=== PATIENT | male | born 1985 | race Caucasian/White ===

== ENCOUNTER 2016-07-04 14:55 | Emergency (ER) | payer BC ==
[~2016-07-04] VITALS: Ht 182.9 cm; Wt 75.2 kg
[~2016-07-04 14:55] MED LIST: CEPH500C PO; TRAM-10 PO
[2016-07-04 14:59] VITALS: TEMP 36.9; Ht 182.9 cm; Wt 75.2 kg
[2016-07-04 15:14] VITALS: O2SAT 99
[2016-07-04] MEDS ORDERED: VALA500T60 PO (15:15)
[2016-07-04] MEDS ORDERED: GLUCAGON INJ 1 MG in SYRINGE 0 ML IV STA (15:40)
--- NOTE | 2016-07-04 15:43 | EMERGENCY ROOM VISIT NOTE ---
History First contact with patient: 15:21 Chief Complaint: THROAT PAIN/INJURY Stated Complaint: MAYBE SOMETHING PARTIALLY STUCK IN THROAT History of Present Illness The patient is a 30 year old male who presents to the Emergency Room via private vehicle with complaints of "may be something partially stuck in throat" . The patient states that earlier today, around noon time, he was at work eating a salad and laughed, and he believes that something became lodged in his throat. He states that when he swallows there is a discomfort in the throat as if something is stuck in the esophagus. He is able to drink water without problems but is concerned about eating food. He denies any fevers, chills, chest pain, shortness of breath, trouble consuming liquids, trouble breathing. He again notes minor discomfort with swallowing. Review of Systems A complete 10-point Review of Systems was discussed with the patient, with pertinent positives and negatives listed in the History of Present Illness. All remaining Review of Systems questions can be considered negative unless otherwise specified. Past Medical/Surgical History Anterior cruciate ligament 2005, wisdom teeth extraction Family History Unremarkable Social History Smoking Status: Never Smoker Social History: Patient is currently employed, lives with girlfriend, feels safe at home, denies tobacco use but admits to alcohol use. Current/Historical Medications Scheduled Omeprazole (Prilosec), 20 MG PO DAILY Sucralfate (Carafate), 10 ML PO BID Valacyclovir (Valtrex), 500 MG PO DAILY Allergies Coded Allergies: Amoxicillin (Unverified Allergy, Unknown, unknown, 07/04/16) Physical Exam Vital Signs Date Time Temp Pulse Resp B/P Pulse Ox O2 Delivery O2 Flow Rate FiO2 07/04/16 19:23 50 16 111/57 98 07/04/16 15:14 99 Room Air 07/04/16 14:59 36.9 47 16 114/74 100 Room Air Physical Exam VITAL SIGNS - Vital signs and nursing notes were reviewed. Patient is afebrile , normotensive, pulse rate low at 47, saturating well on room air 100%. GENERAL -30-year-old male appearing his stated age who is in no acute distress. Communicates well with provider and answers questions appropriately. SKIN - Without rashes. HEAD - NC/AT. EYES - Sclera anicteric. Palpebral conjunctiva pink and moist with no injection noted. NOSE - Midline and without cyanosis. No epistaxis or purulent drainage noted. MOUTH/OROPHARYNX - Without perioral cyanosis. Buccal mucosa pink and moist and without leukoplakia. Tongue midline with equal elevation of palate bilaterally. No tonsillar hypertrophy, erythema, or exudates noted. Good dentition noted. No blood in the posterior pharynx or irritation. NECK - Neck with FROM. Supple to palpation. No lymphadenopathy noted. No nuchal rigidity. No tenderness to palpation of the anterior neck or throat region. LUNGS - Chest wall symmetric without accessory muscle use, intercostals retractions, or central cyanosis. Normal vesicular breath sounds CTA B/L. No wheezes, rales, or rhonchi appreciated. CARDIAC - RRR with S1/S2. No murmur, rubs, or gallops appreciated. Medical Decision & Procedures ER Provider Diagnostic Interpretation: CHEST 2 VIEWS ROUTINE CLINICAL HISTORY: Sensation of food bolus in throat dysphagia COMPARISON STUDY: No previous studies for comparison. FINDINGS: The bones soft tissues and hemidiaphragms are normal. The cardiomediastinal silhouette is normal. The lungs are clear. The pulmonary vasculature is normal. IMPRESSION: Negative chest. Electronically signed by: Kurtis Asif M.D. 07/04/2016 5:01 PM Dictated Date/Time: 07/04/2016 5:01 PM Laboratory Results 07/04/16 16:15 Red Blood Count 5.07, Mean Corpuscular Volume 87.0, Mean Corpuscular Hemoglobin 31.0, Mean Corpuscular Hemoglobin Concent 35.6, Mean Platelet Volume 11.8, Neutrophils (%) (Auto) 49.8, Lymphocytes (%) (Auto) 34.2, Monocytes (%) (Auto) 10.5, Eosinophils (%) (Auto) 4.7, Basophils (%) (Auto) 0.8, Neutrophils # (Auto ) 2.41, Lymphocytes # (Auto) 1.66, Monocytes # (Auto) 0.51, Eosinophils # (Auto ) 0.23, Basophils # (Auto) 0.04 07/04/16 16:15 Test 07/04/16 16:15 White Blood Count 4.85 K/uL (4.8-10.8) Red Blood Count 5.07 M/uL (4.7-6.1) Hemoglobin 15.7 g/dL (14.0-18.0) Hematocrit 44.1 % (42-52) Mean Corpuscular Volume 87.0 fL (80-100) Mean Corpuscular Hemoglobin 31.0 pg (25-34) Mean Corpuscular Hemoglobin Concent 35.6 g/dl (32-36) Platelet Count 180 K/uL (130-400) Mean Platelet Volume 11.8 fL (7.4-10.4) Neutrophils (%) (Auto) 49.8 % Lymphocytes (%) (Auto) 34.2 % Monocytes (%) (Auto) 10.5 % Eosinophils (%) (Auto) 4.7 % Basophils (%) (Auto) 0.8 % Neutrophils # (Auto) 2.41 K/uL (1.4-6.5) Lymphocytes # (Auto) 1.66 K/uL (1.2-3.4) Monocytes # (Auto) 0.51 K/uL (0.11-0.59) Eosinophils # (Auto) 0.23 K/uL (0-0.5) Basophils # (Auto) 0.04 K/uL (0-0.2) RDW Standard Deviation 40.5 fL (36.4-46.3) RDW Coefficient of Variation 12.6 % (11.5-14.5) Immature Granulocyte % (Auto) 0.0 % Immature Granulocyte # (Auto) 0.00 K/uL (0.00-0.02) Anion Gap 9.0 mmol/L (3-11) Est Creatinine Clear Calc Drug Dose 119.5 ml/min Estimated GFR () 121.8 Estimated GFR (Non- 105.1 BUN/Creatinine Ratio 20.8 (10-20) Calcium Level 9.2 mg/dl (8.5-10.1) Medications Administered Medications (Trade) Dose Ordered Sig/Jason Route Start Time Stop Time Status Last Admin Dose Admin Glucagon (Glucagon Inj) 1 mg STK-MED ONCE .ROUTE 07/04/16 16:05 07/04/16 16:08 DC 07/04/16 16:15 1 MG Sucralfate (Carafate Susp) 1 gm NOW STAT PO 07/04/16 18:44 07/04/16 18:51 DC 07/04/16 19:22 1 GM Medical Decision Patient was seen and evaluated as above. After obtaining a thorough history and physical examination, monitor was applied, continuous pulse ox was initiated , by mouth fluid trial was initiated and chest 2 view was initiated. I did elect to establish IV access, and obtain a CBC, PRP provide the patient with a glucagon injection. Glucagon was entered by the pharmacist at my request. Glucagon was to help with any potential minor food bolus. The patient was able to consume water without difficulty in my presence. I decided not suspect an obstruction or food bolus. I suspect irritation in the esophagus secondary to minor trauma with the food. The patient was observed here for many hours and appear to be doing well, without worsening of symptoms. I did discuss the case with my attending who help guide management. I did elect to discuss the case with the on-call gastrointestinal specialist, and at 6:[address] Freeman, regarding the case. He instructed me to start the patient upon Prilosec, Carafate. He also instructed me to have the patient follow-up with his primary care doctor, or he may feel free to call their office Thursday morning if continued symptoms. I do believe this is reasonable, but do want to note that the patient did indicate that he would like an endoscopic examination of this region. I did discuss this with my attending, and after the consult with the GI specialist do not believe that at this time this would be warranted. There was no airway compromise, the patient was tolerating liquids without difficulty, and did not have any decompensation during his stay. I do believe that if the patient returns with worsening symptoms endoscopic exam may be necessary and did inform the patient upon this. The patient was provided with 1 g of Carafate here, and was sent home with a prescription for Prilosec as well as Carafate. He was educated upon management of these findings, was educated upon worrisome symptoms in which to return, had questions answered prior to discharge, and was discharged home in good condition. He is to follow-up with his family doctor and GI by calling them first thing Thursday morning to schedule follow-up, or is to return with any worsening or any new/concerning symptoms. Patient's CBC reveals no leukocytosis or anemia, the CMP does reveal slight elevated BUN at 20, otherwise unremarkable. In the evaluation and treatment of this patient the following differential diagnoses were entertained: Food bolus, irritated esophagus, tracheal compromise , among others. Impression Primary Impression: Irritated throat Departure Information Dispostion Home / Self-Care Condition GOOD Prescriptions Omeprazole (Prilosec) 20 Mg Capcr 20 MG PO DAILY for 30 Days, #30 CAP Prov: Pual Ugalde PA-C 07/04/16 Sucralfate (CARAFATE) 1 Gm/10 Ml Allyson 10 ML PO BID for 7 Days, #140 ML 1 Refill Prov: Paul Ugalde PA-C 07/04/16 Referrals Melissa Murray M.D. (PCP) Magnus Freeman MD Patient Instructions [facility] Additional Instructions You were seen in the emergency department for your esophageal irritation/ potential food bolus. You hvae been prescribed Prilosec 20 mg daily for 30 days. You have been prescribed Carafate 1 g twice daily for 7 days. For pain and fever control, you can use the following [id number] medicines (if >12 yo): - Regular strength (325mg/tab) Tylenol (acetaminophen) 2 tabs every 4-6 hours as needed. Do not exceed 12 tablets in a 24 hour period. Avoid taking more than 4 grams (4000 mg) of Tylenol per day. This includes any other sources of acetaminophen you may take on a regular basis. - Regular strength (200 mg/tab) Advil (ibuprofen) 1-2 tabs every 4-6 hours as needed. Do not exceed a dose of 3200 mg per day. - For best results, alternate dosing of Tylenol and Advil. Return to the emergency department if your symptoms persist or worsen over the next 2-3 days despite treatment course outlined above. Return to the emergency department if you develop the following symptoms of: inability to swallow solids , liquids, or drool; excessive wheezing or inability to catch your breath; or intractable fever or pain. Follow up with your primary care provider and GI specialist in 2-3 days from today's emergency department visit. (Dr. Freeman)
[2016-07-04] MEDS ORDERED: GLUCAGON FOR INJ 1 MG VIAL ONE (16:05)
[2016-07-04 16:34] LABS: BASO % 0.8 %; BASO ABS # 0.04 K/uL (0-0.2); COMPLETE YES; EOS % 4.7 %; HEMATOCRIT 44.1 % (42-52); LYMPH % 34.2 %; LYMPH ABS # 1.66 K/uL (1.2-3.4); MEAN CORPUSCULAR HGB CONC 35.6 g/dl (32-36); MEAN PLATELET VOLUME 11.8 fL (7.4-10.4); MONO % 10.5 %; NEUT % 49.8 %; PLATELET COUNT 180 K/uL (130-400); RED BLOOD COUNT 5.07 M/uL (4.7-6.1); WHITE BLOOD COUNT 4.85 K/uL (4.8-10.8)
[2016-07-04 16:53] LABS: BUN/CREATININE RATIO 20.8 (10-20); CALCIUM 9.2 mg/dl (8.5-10.1); CREATININE 0.97 mg/dl (0.60-1.40); POTASSIUM 3.8 mmol/L (3.5-5.1)
--- NOTE | 2016-07-04 17:02 | DIAGNOSTIC IMAGING REPORT ---
CHEST 2 VIEWS ROUTINE CLINICAL HISTORY: Sensation of food bolus in throat dysphagia COMPARISON STUDY: No previous studies for comparison. FINDINGS: The bones soft tissues and hemidiaphragms are normal. The cardiomediastinal silhouette is normal. The lungs are clear. The pulmonary vasculature is normal. IMPRESSION: Negative chest. Electronically signed by: Kurtis Asif M.D. 07/04/2016 5:01 PM Dictated Date/Time: 07/04/2016 5:01 PM
[2016-07-04] MEDS ORDERED: PANTOprazole SOD 40 MG TAB PO STA (18:44)
[2016-07-04] MEDS ORDERED: SUCRALFATE 1 GM/10 ML UDC PO STA (18:44)
[2016-07-04] MEDS ORDERED: OMEP20CA59 PO (18:56)
[2016-07-04] MEDS ORDERED: CRFL PO (18:56)
[2016-07-04 19:23] VITALS: BP 111/57; PULSE 50; O2SAT 98
== END 2016-07-04 19:23 | disposition home or self-care (01) ==
LOC: C.EDB 14:56
DX: R07.0 Pain in throat (principal)

== ENCOUNTER → 2016-12-11 | Outpatient (CLI) | payer BC ==
[~2016-12-11] MED LIST changes: -CEPH500C PO; +CRFL PO; -TRAM-10 PO; +VALA500T60 PO
== END | disposition home or self-care (01) ==
LOC: C.LABPVFM 14:23
PROVIDERS: ATTEND Family Medicine
DX: E80.6 Other disorders of bilirubin metabolism (principal)